=== PATIENT | female | born 2000 | race African-American/Black ===

== ENCOUNTER 2021-11-25 07:40 | Day surgery (SDC) | payer OTHER ==
[~2021-11-25] VITALS: Ht 157.5 cm; Wt 45.5 kg
[2021-11-25] MEDS ORDERED: PROTONIX 40MG T40 MG PO (08:02)
[2021-11-25] MEDS ORDERED: ZOFRAN 4MG T4 MG/TAB PO (08:03)
[2021-11-25] MEDS ORDERED: DULOXETINE PO (08:04)
[2021-11-25] MEDS ORDERED: LIDOCAINE HC20 MG/M2 PO (08:05)
[2021-11-25 08:17] VITALS: BP 106/76; PULSE 99; TEMP 98.1
[2021-11-25 09:15] VITALS: BP 107/72; PULSE 98; TEMP 97.9
--- NOTE | 2021-11-25 09:15 | NUR ---
Pt arrived on cart, very drowsy. Pt was assisted with ambulating from cart to chair by x2 RN's. Vitals obtained. Four warm blankets applied. Pt is sleeping. Verbal room report obtained. Call reyes is within reach on side table.
[2021-11-25 09:30] VITALS: BP 103/75; PULSE 92
--- NOTE | 2021-11-25 09:30 | NUR ---
Pt still drowsy but oriented. She has woken up and requested ice water and buttered wheat toast. Vitals obtained. Call reyes remains within reach.
[2021-11-25 09:45] VITALS: BP 102/85; PULSE 87
--- NOTE | 2021-11-25 10:01 | NUR ---
Vitals obtained. Pt has finished her toast and continues to slip her water. Denies nausea. No vomiting. Pt states ride is here and pt expressed desire to be discharged. IV discontinued. Catheter tip intact. Pressure bandage applied. No swelling noted. Call reyes reamins within reach. Pt denied needing assistance changing into personal clothes.
--- NOTE | 2021-11-25 10:09 | NUR ---
DC instructions and educational material reviewed with pt, who verbalized understanding and signed the related paperwork. Pt denied having questions or concerns. Pt dismissed from endo via wheelchair to the patient entrence and transferred into the care of her Unruly, who is present to drive.
== END 2021-11-25 10:10 | disposition home or self-care (01) ==
LOC: SDCO 07:40
DX: K20.0 Eosinophilic esophagitis (principal); R10.13 Epigastric pain; R11.0 Nausea; Z87.891 Personal history of nicotine dependence; Z79.899 Other long term (current) drug therapy
CPT/HCPCS: J2704; J7030

== ENCOUNTER → 2021-12-03 | Outpatient (CLI) | payer OTHER ==
[~2021-12-03] MED LIST: DULOXETINE PO; LIDOCAINE HC20 MG/M2 PO; PROTONIX 40MG T40 MG PO; ZOFRAN 4MG T4 MG/TAB PO
== END ==
LOC: COL.RAD 10:00
DX: N31.9 Neuromuscular dysfunction of bladder, unspecified (principal)
CPT/HCPCS: A9537

== ENCOUNTER 2023-06-17 15:29 | Emergency (ER) | payer OTHER ==
[~2023-06-17] VITALS: Ht 157.5 cm; Wt 42.7 kg
[~2023-06-17 15:29] MED LIST changes: +EPIPEN 2-PAK1 MG/ML IM; +PREDNISONE50 MG PO
[2023-06-17] MEDS ORDERED: PREDNISONE20 MG PO (20:02)
[2023-06-17 20:15] VITALS: BP 110/74; PULSE 90; TEMP 97.6
== END 2023-06-17 20:15 | disposition home or self-care (01) ==
LOC: COL.ER 15:29
DX: H49.02 Third [oculomotor] nerve palsy, left eye (principal); H53.122 Transient visual loss, left eye; Z87.891 Personal history of nicotine dependence

== ENCOUNTER 2023-09-29 21:34 | Emergency (ER) | payer OTHER ==
[~2023-09-29] VITALS: Ht 157.5 cm; Wt 42.7 kg
[~2023-09-29 21:34] MED LIST changes: +PREDNISONE20 MG PO
[2023-09-29 21:54] VITALS: TEMP 98
[2023-09-29] MEDS ORDERED: dexAMETHasone 10 MG/ML VIAL IM ONE (22:15)
[2023-09-29] MEDS ORDERED: hydrOXYzine HCl 25 MG TAB PO ONE (22:30)
[2023-09-29] MEDS ORDERED: ATARAX 25MG25 MG/TAB PO (23:39)
[2023-09-29 23:46] VITALS: BP 126/81; PULSE 96
== END 2023-09-29 23:57 | disposition home or self-care (01) ==
LOC: COL.ER 21:34
DX: T78.40XA Allergy, unspecified, initial encounter (principal)
CPT/HCPCS: J1100

== ENCOUNTER 2023-12-20 18:45 | Emergency (ER) | payer OTHER ==
[~2023-12-20] VITALS: Ht 154.9 cm; Wt 42.7 kg
[~2023-12-20 18:45] MED LIST changes: +AMOXICILLIN 8751 TAB PO; +ATARAX 25MG25 MG/TAB PO
[2023-12-20] MEDS ORDERED: NS 1,000 ML IV ONE (19:00)
[2023-12-20 19:23] LABS: BASO # 0.1 K/mm3 (0.0-0.2); BASO % 1.7 % (0.0-2.0); EOS # 0.2 K/mm3 (0.0-0.7); GRAN % 50.5 % (42.2-75.2); HEMOGLOBIN 12.3 g/dl (12.5-16.0); LYMPH # 2.3 K/mm3 (1.2-3.4); LYMPH % 37.5 % (20.0-51.0); MEAN CELL VOLUME 73 fl (80.0-100.0); MEAN CORPUSCULAR HEMOGLOBIN 25 pg (27-31); MEAN CORPUSCULAR HGB CONC 34 g/dl (33.0-37.0); MEAN PLATELET VOLUME 9.4 fl (7.4-10.4); MONO # 0.4 K/mm3 (0.1-0.6); MONO % 6.1 % (1.7-9.3); PLATELET COUNT 412 K/mm3 (130-400); RED BLOOD COUNT 4.98 M/mm3 (4.10-5.30); REDCELL DISTRIBUTION WIDTH-CV 15.9 % (11.5-14.5)
[2023-12-20 19:26] LABS: HEMATOCRIT 36.3 % (37.0-47.0)
[2023-12-20 19:40] LABS: BILIRUBIN,TOTAL 0.5 mg/dL (0.2-1.2); CALCIUM 9.2 mg/dL (8.4-10.2); CREATININE, serum 0.89 mg/dL (0.57-1.11); POTASSIUM 4.1 mEq/L (3.5-4.5); TOTAL PROTEIN 7.7 g/dl (6.2-8.1)
[2023-12-20 19:54] LABS: PH 7.5 (5.0-8.5); URINE APPEARANCE CLEAR (CLEAR/HAZY); URINE BLOOD 2+ (NEGATIVE); URINE COLOR YELLOW (YELLOW); URINE GLUCOSE NEGATIVE (NEGATIVE); URINE KETONE NEGATIVE (NEGATIVE); URINE NITRATE NEGATIVE (NEGATIVE); URINE PROTEIN(semi-quant) NEGATIVE (NEGATIVE); URINE UROBILINOGEN 0.2 E.U/dL (0.2-1.0)
[2023-12-20 20:01] LABS: COLLECTION METHOD CLEAN CATCH
[2023-12-20 20:32] VITALS: BP 115/71; PULSE 85; TEMP 98.4
== END 2023-12-20 20:33 | disposition home or self-care (01) ==
LOC: COL.ER 18:45
PROVIDERS: Physician Assistant
DX: N92.0 Excessive and frequent menstruation with regular cycle (principal)
CPT/HCPCS: J7030